=== PATIENT | male | born 1940 | race Caucasian/White ===

== ENCOUNTER 2022-09-21 20:09 | Emergency (ER) | payer MEDICARE, MEDICAID, SELFPAY ==
--- NOTE | 2022-09-21 20:12 | XRR_ITS ---
PROCEDURE INFORMATION: Exam: XR Left Hand Exam date and time: 09/21/2022 8:21 PM Age: 81 years old Clinical indication: Injury or trauma; Other: Cut; Lace from [employer] somebody's ration; Hand; Left TECHNIQUE: Imaging protocol: Radiologic exam of the left hand. Views: 3 or more views. COMPARISON: No relevant prior studies available. FINDINGS: Bones/joints: There is an acute hairline transverse fracture through the tuft but no displacement. No radiopaque foreign body. Soft tissues: There is soft tissue disruption in the distal phalanx of the 4th finger. XR/XR hand LT min 3V* [id number] IMPRESSION: Fourth tuft fracture with associated soft tissue disruption
[2022-09-21 20:16] VITALS: PULSE 70; RESP 16; TEMP 36.6; O2SAT 98; BMI 30.2
--- NOTE | 2022-09-21 20:35 | W.ED.WOUNDLC ---
HPI - Wound/Laceration General: Chief Complaint: Wound/Laceration Stated Complaint: left hand finger lac to the bone Time Seen by Provider: 09/21/22 20:20 History of Present Illness: Patient is an 81-year-old male who comes to the ED with left hand finger laceration. Injury occurred just prior to arrival. Patient does not speak Panamanian but brought one of his family members with him who does speak Panamanian and he is providing the history. Patient was working on a mower and the blade was spinning and it accidentally cut fourth digit on left hand. He was able to wash wound with an iodine solution and then covered it with bandage to control the bleeding. Patient states that his pain is very minimal. Denies any other injuries. Patient is unsure of last tetanus. Associated symptoms: Denies chills, fever(s), nausea or vomiting Review of Systems Const: Denies: fever(s), chills or fatigue Eyes: Denies: change in vision or eye discomfort ENMT: Denies: throat pain, odynophagia, nasal discharge or nasal congestion Card: Denies: chest pain, palpitations, edema, swelling of feet/ankles, dyspnea on exertion or orthopnea Resp: Denies: dyspnea, productive cough or non-productive cough GI: Denies: abdominal pain, nausea, vomiting, diarrhea, constipation or hematochezia : Denies: flank pain, difficulty urinating, dysuria or hematuria Musc: Reports: extremity pain (distal left 4th finger injury and wound); Denies: neck pain, back pain or extremity swelling Skin/Breast: Denies: rash or new lesions Neuro: Denies: headache(s), numbness in extremities or weakness in extremities [facility] ED PFSH: Medical History (Updated 09/21/22 @ 23:17 by JAZMIN Pacheco) No pertinent family history Surgical History (Updated 09/21/22 @ 23:17 by JAZMIN Pacheco) No pertinent past surgical history Physical Exam Const: COMMON NORMALS: no acute distress, patient oriented x3 and alert GENERAL APPEARANCE: cooperative HENMT: COMMON NORMALS: normocephalic HEAD & SCALP: normocephalic MOUTH: Normal oral and palatal mucosa present THROAT: posterior oropharynx normal and uvula midline Neck/C-Spine: COMMON NORMALS: supple GENERAL: Yes normal visual inspection Resp: COMMON NORMALS: normal respiratory effort, No retractions, No use of accessory muscles and clear to auscultation bilaterally AUSCULTATION: clear to auscultation bilaterally Cardio: COMMON NORMALS: regular rate, regular rhythm, S1 normal heart sound present, S2 normal heart sound present, No gallops present (Cardio), No clicks present (Cardio), No murmurs present (Cardio) and Peripheral pulses 2+ throughout RATE: regular rate RHYTHM: regular rhythm HEART SOUNDS: S1 normal heart sound present and S2 normal heart sound present PERIPHERAL PULSES: Peripheral pulses 2+ throughout GI: COMMON NORMALS: Normal to inspection, nondistended, normoactive bowel sounds present, Soft to palpation, non-tender and no masses PALPATION: Yes Soft to palpation : COMMON NORMALS: Yes no CVA tenderness BLADDER/KIDNEY EXAM: Yes no CVA tenderness Back/Pelvis: COMMON NORMALS: no CVA tenderness Extremity: NARRATIVE EXTREMITY EXAM: Left hand?fourth digit?deep irregular shaped laceration to distal end patient's finger. Nail appears undamaged but laceration does cut through underneath the nailbed. No foreign body seen in wound. Neuro: COMMON NORMALS: patient oriented x3 SENSORIUM/ORIENTATION: Yes alert GAIT: Yes Normal gait present Skin: GENERAL SKIN EXAM: dry skin Procedures Laceration Laceration 1: Site: hand (Distal end of fourth digit) Side (If applicable): left Size (cm): 2 Description: irregular Depth: simple, single layer Local Anesthetic: lidocaine 2% (Digital block) Amount of anesthesia used (mL): 6 Pre-repair: irrigated extensively (With normal saline and iodine wash) Size (cm): 4-0 Number of sutures: 4 Technique: simple, interrupted Nerve Block Nerve Block 1: Time out performed: Yes Local Anesthetic: lidocaine 2% Amount of anesthesia used (mL): 6 Side: left Nerve Blocks: digital (Fourth digit) Patient Tolerated Procedure: well Complications: none Course Vital Signs: Vital signs: Vital Signs Temperature 97.9 F 09/21/22 20:16 Pulse Rate 70 09/21/22 20:16 Respiratory Rate 16 09/21/22 20:16 Pulse Oximetry 98 09/21/22 20:16 Oxygen Delivery Me thod Room Air 09/21/22 20:16 MDM - Wound/Laceration Medical Decision Making Patient is an 81-year-old male who comes to the ED with left hand finger laceration. Injury occurred just prior to arrival. Patient does not speak Panamanian but brought one of his family members with him who does speak Panamanian and he is providing the history. Patient was working on a mower and the blade was spinning and it accidentally cut fourth digit on left hand. He was able to wash wound with an iodine solution and then covered it with bandage to control the bleeding. Patient states that his pain is very minimal. Denies any other injuries. Patient is unsure of last tetanus. Vital stable left hand?fourth digit?deep irregular shaped laceration to distal end patient's finger. Nail appears undamaged but laceration does cut through underneath the nailbed. No foreign body seen in wound. Rest of exam is benign. Left hand x-ray shows fourth tuft fracture with soft tissue disruption. Digital nerve block performed with lidocaine 2% on fourth digit of left hand and patient tolerated it well. Wound was then irrigated extensively with normal saline and iodine wash. Patient was given updated tetanus and a dose of IV Ancef while here in the ED due to open fracture. 4 sutures were placed to loosely close laceration on finger. Patient's finger was then bandaged up and he was stable for discharge home. I placed an order with case management for patient be referred to Ortho within the next week for follow-up on open fracture of finger. Patient was instructed on how to care for wound. Return to ED precautions given. Patient was sent home with a prescription for couple hydrocodone, ibuprofen and Keflex. Patient understood and agreed with plan for Lab Data Radiology Impressions Hand X-Ray 09/21/22 20:12 IMPRESSION: Fourth tuft fracture with associated soft tissue disruption Discharge Plan Discharge Patient Disposition: Home Clinical Impression: Fracture of distal phalanx of finger, open Qualifiers: Encounter type: initial encounter Finger: ring finger Fracture alignment: nondisplaced Laterality: left Qualified Code(s): S62.665B - Nondisplaced fracture of distal phalanx of left ring finger, initial encounter for open fracture Condition: Stable Prescriptions: New cephalexin 500 mg capsule 500 mg PO Q6H 7 Days Qty: 28 0RF ibuprofen 800 mg tablet 800 mg PO Q8H PRN (Reason: pain) Qty: 30 0RF Discharge Orders: Discharge ED (Routine); Ordered 09/21/22 Ordered By: Julio César Yuan Referrals: Ciro Polk MD [Primary Care Provider] - Wes Saunders MD [Family Provider] - Discharge Diet: Regular Discharge Activity: Limit activity as instructed Patient Instructions: Finger Fracture (ED) Activity Restrictions/Additional Instructions: Follow-up with medical provider as directed. Contact [facility] Ortho clinic at [phone] tomorrow to make sure you get appointment scheduled within the next couple days. You can also call orthopedic doctors in [place] to get in with them if you need to since it might be closer. Clean wound daily with soap and water, then apply triple antibiotic ointment on wound and wrapped with bandage. Limit any activity with left hand until cleared by Ortho. Take medications as prescribed. Return to the ER or your medical provider if condition worsens. Please read and understand discharge instructions. Thank you for choosing [facility] for your healthcare needs today. Please realize this is an emergency room and that we are providing you with a medical screening exam and this may not be complete and all inclusive of all the testing and or work up that you may need to determine your ailment or severity of your illness. It is very important that you follow up as instructed or that you return to the Emergency Department should you have concerns or if your condition changes or worsens in any way. Coding Level of Care Code ED Complaint Adjuster for Adelita Aguilar
[2022-09-21] MEDS: ceFAZolin 2,000 MG in sodium chloride 0.9% (plus) 50 ML 100 MG IV (20:55)
[2022-09-21] MEDS: tetanus-dipt-pertussis 0.5 mL SDV IM (20:59)
[2022-09-21] MEDS: lidocaine 2% INJ 20 mL INJECTION (20:59)
[2022-09-21] MEDS: neomycin-poly-bacitracin oint 28 gm 1 APPLIC TOPICAL (22:17)
--- NOTE | 2022-09-21 22:55 | PC.NURSE ---
pt finger cleaned with betadine and NS. pt wound cleaned and dressed with vasoline gauze, telfa, and coband.
--- NOTE | 2022-09-22 07:47 | DCPLANNER ---
Addendum entered by Loida Harrell 10/05/22 15:02: This appointment was rescheduled Addendum entered by Loida Harrell 09/23/22 09:54: Patient has a follow up appointment scheduled for September at 10:30 with Davin Abdul at ortho. Original Note: asset manager had message to schedule a follow up appointment for patient with ortho. asset manager sent patients information to the front office staff at ortho. Patients information will be printed and reviewed. Clinic will call patient with appointment information.
== END 2022-09-21 22:30 | disposition home or self-care (01) ==
PROVIDERS: Emergency Provider Physician Assistant; Family Provider Family Medicine; PCP Urology
DX: S62.665B Nondisplaced fracture of distal phalanx of left ring finger, initial encounter for open fracture (principal); W31.89XA Contact with other specified machinery, initial encounter; Z23 Encounter for immunization
CPT/HCPCS: 12001; 73130; 90471; 90715; 96365; 99284; J0690

== ENCOUNTER → 2022-10-07 14:26 | Outpatient (BNVA) | payer MEDICARE, MEDICAID, SELFPAY | PROVIDERS: Family Provider Family Medicine; PCP Urology; Referring Provider Physician Assistant; Visit Provider Nurse Practitioner Family | DX: S62.635B Displaced fracture of distal phalanx of left ring finger, initial encounter for open fracture (principal); X58.XXXA Exposure to other specified factors, initial encounter | CPT/HCPCS: 73130; 99203 ==

== ENCOUNTER → 2023-10-18 07:56 | Outpatient (BNVA) | payer MEDICARE, MEDICAID, SELFPAY | PROVIDERS: Family Provider Family Medicine; PCP Urology; Visit Provider Nurse Practitioner Family | DX: L23.9 Allergic contact dermatitis, unspecified cause (principal); L81.0 Postinflammatory hyperpigmentation; L57.0 Actinic keratosis; L82.1 Other seborrheic keratosis; D22.5 Melanocytic nevi of trunk | CPT/HCPCS: 17000; 99203 ==

== ENCOUNTER → 2024-04-11 11:21 | Outpatient (BNVA) | payer MEDICARE, MEDICAID, SELFPAY | PROVIDERS: Family Provider Family Medicine; PCP Urology; Visit Provider Nurse Practitioner Family | DX: L23.9 Allergic contact dermatitis, unspecified cause (principal); L82.1 Other seborrheic keratosis; D22.5 Melanocytic nevi of trunk; L81.4 Other melanin hyperpigmentation; D48.5 Neoplasm of uncertain behavior of skin; L57.0 Actinic keratosis | CPT/HCPCS: 11102; 17000; 99213 ==

== ENCOUNTER → 2024-06-18 13:52 | Outpatient (BNVA) | payer MEDICARE, MEDICAID, SELFPAY | PROVIDERS: Family Provider Family Medicine; PCP Urology; Visit Provider Dermatology | DX: L30.0 Nummular dermatitis (principal); C44.519 Basal cell carcinoma of skin of other part of trunk; D48.5 Neoplasm of uncertain behavior of skin; L57.0 Actinic keratosis | CPT/HCPCS: 11102; 17000; 17262; 99214 ==

== ENCOUNTER → 2024-07-19 07:55 | Outpatient (BNVA) | payer MEDICARE, MEDICAID, SELFPAY | PROVIDERS: Family Provider Family Medicine; PCP Urology; Visit Provider Dermatology | DX: L90.5 Scar conditions and fibrosis of skin (principal); L82.1 Other seborrheic keratosis; C44.329 Squamous cell carcinoma of skin of other parts of face; L57.0 Actinic keratosis | CPT/HCPCS: 13132; 17000; 17311; 99213 ==

== ENCOUNTER → 2024-10-11 11:08 | Outpatient (BNVA) | payer MEDICARE, MEDICAID, SELFPAY | PROVIDERS: Family Provider Family Medicine; PCP Urology; Visit Provider Nurse Practitioner Family | DX: L82.1 Other seborrheic keratosis (principal); L73.8 Other specified follicular disorders; L57.8 Other skin changes due to chronic exposure to nonionizing radiation; X32.XXXA Exposure to sunlight, initial encounter; D18.01 Hemangioma of skin and subcutaneous tissue; Z08 Encounter for follow-up examination after completed treatment for malignant neoplasm; Z85.828 Personal history of other malignant neoplasm of skin; L57.0 Actinic keratosis | CPT/HCPCS: 17000; 99213 ==